=== PATIENT | male | born 1965 | race Caucasian/White ===

== ENCOUNTER 2022-02-18 00:21 | Inpatient (IN) | payer OTHER ==
[2022-02-18] MEDS ORDERED: HEPARIN SODIUM 1,000 UN/ML (10ML VL) IV ONE (00:43)
[2022-02-18] MEDS ORDERED: HEPARIN SODIUM 1,000 UN/ML (10ML VL) IV PRN (00:43)
[2022-02-18] MEDS ORDERED: HEPARIN SOD,PORK IN 0.45% NACL 25,000 UNIT in 0.45% NACL 1 250ML.BAG IV SCH (00:45)
--- NOTE | 2022-02-18 00:46 | ED ---
General Adult HPI - General Stated complaint: AFib, Shortness of Breathing Time Seen by Provider: 02/18/22 00:27 Source: patient Mode of arrival: EMS Limitations: no limitations - History of Present Illness Initial comments: Dictation was produced using Flim[employer] dictation software. please excuse any grammatical, word or spelling errors. Chief Complaint: 56-year-old male presents emergency department for dyspnea and weakness History of Present Illness: Patient is a 56-year-old male is has history of atrial fibrillation. As noncompliant with his A. fib medications. Patient states she's been admitted to the hospital couple years back for atrial fibrillation. He has not followed up like he was instructed to after that admission. Patient is not taking any medications. Over the last several days he's been having worsening shortness of breath it's more. With trying to exert himself. Denies any chest pain. He does report shortness of breath with ex ertion. No cough or constitutional symptoms. The ROS documented in this emergency department record has been reviewed and confirmed by me. Those systems with pertinent positive or negative responses have been documented in the HPI. All other systems are other negative and/or noncontributory. PHYSICAL EXAM: General Impression: Alert and oriented x3, not in acute distress HEENT: Normocephalic atraumatic, extra-ocular movements intact, pupils equal and reactive to light bilaterally, mucous membranes moist. Cardiovascular: Irregular Chest: Able to complete full sentences, no retractions, no tachypnea Abdomen: abdomen soft, non-tender, non-distended, no organomegaly Musculoskeletal: Pulses present and equal in all extremities, no peripheral edema Motor: no focal deficits noted Neurological: CN II-XII grossly intact, no focal motor or sensory deficits noted Skin: Intact with no visualized rashes Psych: Normal affect and mood ED course: 56-year-old male presents emergency Department with acute shortness of breath. Patient has history of atrial fibrillation. Vital signs upon arriva l shows tachycardia. EKG shows H or fibrillation with a rate of 154. Nursing notes and chart review was performed Laboratory evaluation obtained. CBC and coag panel is unremarkable. Metabolic panel is negative. Troponins elevated at 0.123 likely secondary to heart strain. Brain natruretic peptide is 6000 suggesting component of heart failure. X-ray shows pulmonary edema Patient observed in emergency department for several minutes after having started heparin and Cardizem with improvement. Patient will be admitted to cardiac stepdown unit under the care of [facility] hospitalist group. Case discussed with nurse practitioner, Christina Adhikari. EKG interpreted by me: Ventricular rate 154, a fibrillation with RVR, QRS 87, QTC 371. No [place] prolongation, no QTC prolongation, no ST or T-wave changes noted. Critical care time of 33 minutes - Related Data Previous Rx's Medication Instructions Recorded Apixaban [Eliquis] 5 mg PO BID #60 tab 04/08/17 Diltiazem Oral [Cardizem*] 30 mg PO QID #120 tab 04/08/17 Metoprolol Succinate (ER) [Toprol 100 mg PO DAILY #30 tab.er.24h 04/08/17 XL] Allergies Allergy/AdvReac Type Severity Reaction Status Date / Time No Known Allergies Allergy Verified 04/06/17 11:00 Review of Systems ROS Statement: Those systems with pertinent positive or pertinent negative responses have been documented in the HPI. ROS Other: All systems not noted in ROS Statement are negative. Past Medical History Past Medical History: Hypertension History of Any Multi-Drug Resistant Organisms: None Reported Past Surgical History: No Surgical Hx Reported Past Psychological History: No Psychological Hx Reported Past Alcohol Use History: Rare Past Drug Use History: Marijuana General Exam Limitations: no limitations Course Vital Signs 02/18/22 02/18/22 02/18/22 00:36 01:00 02:29 Temperature 98.1 F Pulse Rate 165 H 134 H Pulse Rate [ 164 H Apical] Respiratory 22 28 H Rate Blood Pressure 154/100 O2 Sat by Pulse 98 98 Oximetry Medical Decision Making - Lab Data Result diagrams: 02/18/22 00:51 02/18/22 00:51 Lab Results 02/18/22 02/18/22 02/18/22 Range/Units 00:51 00:51 00:51 WBC 10.8 H (3.8-10.6) k/uL RBC 5.46 (4.30-5.90) m/uL Hgb 15.5 (13.0-17.5) gm/dL Hct 47.4 (39.0-53.0) % MCV 86.8 (80.0-100.0) fL MCH 28.3 (25.0-35.0) pg MCHC 32.6 (31.0-37.0) g/dL RDW 15.5 (11.5-15.5) % Plt Count 312 (150-450) k/uL MPV 7.5 Neutrophils % 78 % Lymphocytes % 13 % Monocytes % 7 % Eosinophils % 1 % Basophils % 1 % Neutrophils # 8.4 H (1.3-7.7) k/uL Lymphocytes # 1.4 (1.0-4.8) k/uL Monocytes # 0.7 (0-1.0) k/uL Eosinophils # 0.1 (0-0.7) k/uL Basophils # 0.1 (0-0.2) k/uL Hypochromasia Slight PT 12.4 H (9.0-12.0) sec INR 1.2 H (<1.2) APTT 23.9 (22.0-30.0) sec Sodium 138 (137-145) mmol/L Potassium 4.1 (3.5-5.1) mmol/L Chloride 103 (98-107) mmol/L Carbon Dioxide 26 (22-30) mmol/L Anion Gap 9 mmol/L BUN 24 H (9-20) mg/dL Creatinine 1.31 H (0.66-1.25) mg/dL Est GFR (CKD-EPI)AfAm 70 (>60 ml/min/1.73 sqM) Est GFR (CKD-EPI)NonAf 60 (>60 ml/min/1.73 sqM) Glucose 131 H (74-99) mg/dL Plasma Lactic Acid Cosme (0.7-2.0) mmol/L Calcium 8.6 (8.4-10.2) mg/dL Magnesium 2.1 (1.6-2.3) mg/dL Total Bilirubin 1.2 (0.2-1.3) mg/dL AST 48 (17-59) U/L ALT 31 (4-49) U/L Alkaline Phosphatase 103 (38-126) U/L Troponin I (0.000-0.034) ng/mL NT-Pro-B Natriuret Pep pg/mL Total Protein 7.0 (6.3-8.2) g/dL Albumin 3.7 (3.5-5.0) g/dL 02/18/22 02/18/22 02/18/22 Range/Units 00:51 00:51 00:51 WBC (3.8-10.6) k/uL RBC (4.30-5.90) m/uL Hgb (13.0-17.5) gm/dL Hct (39.0-53.0) % MCV (80.0-100.0) fL MCH (25.0-35.0) pg MCHC (31.0-37.0) g/dL RDW (11.5-15.5) % Plt Count (150-450) k/uL MPV Neutrophils % % Lymphocytes % % Monocytes % % Eosinophils % % Basophils % % Neutrophils # (1.3-7.7) k/uL Lymphocytes # (1.0-4.8) k/uL Monocytes # (0-1.0) k/uL Eosinophils # (0-0.7) k/uL Basophils # (0-0.2) k/uL Hypochromasia PT (9.0-12.0) sec INR (<1.2) APTT (22.0-30.0) sec Sodium (137-145) mmol/L Potassium (3.5-5.1) mmol/L Chloride (98-107) mmol/L Carbon Dioxide (22-30) mmol/L Anion Gap mmol/L BUN (9-20) mg/dL Creatinine (0.66-1.25) mg/dL Est GFR (CKD-EPI)AfAm (>60 ml/min/1.73 sqM) Est GFR (CKD-EPI)NonAf (>60 ml/min/1.73 sqM) Glucose (74-99) mg/dL Plasma Lactic Acid Cosme 1.9 (0.7-2.0) mmol/L Calcium (8.4-10.2) mg/dL Magnesium (1.6-2.3) mg/dL Total Bilirubin (0.2-1.3) mg/dL AST (17-59) U/L ALT (4-49) U/L Alkaline Phosphatase (38-126) U/L Troponin I 0.123 H* (0.000-0.034) ng/mL NT-Pro-B Natriuret Pep 6310 pg/mL Total Protein (6.3-8.2) g/dL Albumin (3.5-5.0) g/dL Disposition Clinical Impression: Atrial fibrillation with RVR, Heart failure Disposition: ADMITTED IP TO THIS HOSP Condition: Serious Decision Time: 02:17
[2022-02-18] MEDS ORDERED: DILTIAZEM DRIP BOLUS FROM BAG 1 MG SOLN IV ONE (01:17)
[2022-02-18] MEDS ORDERED: SODIUM CHLORIDE 0.9% 1,000 ML IV STA (01:19)
[2022-02-18 01:20] LABS: Basophils # (A) 0.1 k/uL (0-0.2); Basophils % (A) 1 %; Eosinophils # (A) 0.1 k/uL (0-0.7); Eosinophils % (A) 1 %; HCT 47.4 % (39.0-53.0); HGB 15.5 gm/dL (13.0-17.5); Hypochromasia Slight; Lymphocytes # (A) 1.4 k/uL (1.0-4.8); Lymphocytes % (A) 13 %; MCH 28.3 pg (25.0-35.0); MCHC 32.6 g/dL (31.0-37.0); MCV 86.8 fL (80.0-100.0); Mean Platelet Volume 7.5; Monocytes # (A) 0.7 k/uL (0-1.0); Monocytes % (A) 7 %; Neutrophils # (A) 8.4 k/uL (1.3-7.7); Neutrophils % (A) 78 %; Platelet Count 312 k/uL (150-450); RBC 5.46 m/uL (4.30-5.90); RDW 15.5 % (11.5-15.5); WBC 10.8 k/uL (3.8-10.6)
[2022-02-18 01:30] LABS: Albumin 3.7 g/dL (3.5-5.0); Calcium 8.6 mg/dL (8.4-10.2); Magnesium 2.1 mg/dL (1.6-2.3); Potassium 4.1 mmol/L (3.5-5.1); Total Bilirubin 1.2 mg/dL (0.2-1.3)
[2022-02-18] MEDS ORDERED: DILTIAZEM 125 MG in SODIUM CHLORIDE 0.9% 100 ML IV SCH (01:30)
[2022-02-18 01:33] LABS: INR 1.2 (<1.2); Partial Thromboplastin Time 23.9 sec (22.0-30.0); Prothrombin Time 12.4 sec (9.0-12.0)
[2022-02-18] MEDS ORDERED: NALOXONE 0.4 MG/ML 1 ML VIAL IV PRN (02:17)
[2022-02-18] MEDS: SODIUM CHLORIDE 0.9% 1,000 ML IV SCH (02:20)
--- NOTE | 2022-02-18 03:04 | XR ---
EXAMINATION TYPE: XR chest 1V portable DATE OF EXAM: 02/18/2022 COMPARISON: 04/06/2017 HISTORY: Vertebra TECHNIQUE: Single view FINDINGS: There is pulmonary diffuse interstitial and mild airspace edema. Heart is top normal in siz e. There are chest leads. IMPRESSION: There is pulmonary edema that could be acute heart failure or acute interstitial pneumoni a. This appears new compared to old exam.
[2022-02-18] MEDS ORDERED: TEMAZEPAM 15 MG CAP PO PRN (11:05)
[2022-02-18] MEDS ORDERED: ALPRAZolam 0.25 MG TAB PO PRN (11:05)
[2022-02-18] MEDS ORDERED: FUROSEMIDE 10 MG/ML 4 ML VIAL IV SCH (11:15)
--- NOTE | 2022-02-18 12:04 | P.CRDCN ---
History of Present Illness Consult date: 02/18/22 Requesting physician: Mirza Durand Reason for Consult (text): afib rvr Chief complaint: shortness of breath, edema History of present illness: Subjective 56-year-old gentleman who does not follow regularly with cardiology. He was seen here in 2018 at which time he had persistent atrial fibrillation he was anticoagulated and rate was controlled with plans to pursue LYDIA guided cardioversion as an outpatient however patient never followed up. He has not been taking any medications and does not follow regularly with any physicians. He smokes marijuana on a regular basis but not every day. Denies alcohol intake. History of hypertension and obesity. Plan admit to the emergency department with complaints of progressively worsening shortness of breath and edema since around Thanksgiving time. He was found to be in atrial fibrillation with rapid ventricular response and initiated on Cardizem and heparin drip. Initial troponin was 0.123 with no redraw done. NT proBNP was 6310. Other labs showed a BUN of 24 and creatinine 1.31. Chest x-ray showed pulmonary edema that could be acute heart failure or acute interstitial pneumonia, appears new compared to old exam. Patient was seen and evaluated in the emergency department. His blood pressure has been elevated. Heart rate is better controlled in the 90s. Overall he is feeling a little bit better. Denies any complaints of chest discomfort, palpitations, dizziness or lightheadedness. He denies any orthopnea or PND. Does have complaint of lower extremity and abdominal edema. Past Medical History Past Medical History: Hypertension History of Any Multi-Drug Resistant Organisms: None Reported Past Surgical History: No Surgical Hx Reported Past Psychological History: No Psychological Hx Reported Past Alcohol Use History: Rare Past Drug Use History: Marijuana Medications and Allergies Home Medications Medication Instructions Recorded Confirmed Type Multivitamin [Multivitamins Adult 1 tab PO DAILY 02/18/22 02/18/22 History Gummies] Allergies Allergy/AdvReac Type Severity Reaction Status Date / Time No Known Allergies Allergy Verified 02/18/22 10:19 Physical Exam Vitals: Vital Signs Temp Pulse Pulse Resp BP Pulse Ox 02/18/22 06:03 108 H 18 160/97 97 02/18/22 02:29 134 H 28 H 98 02/18/22 01:00 164 H 02/18/22 00:36 98.1 F 165 H 22 154/100 98 Intake and Output 02/17/22 02/18/22 02/18/22 22:59 06:59 14:59 Other: Weight 140.614 kg PHYSICAL EXAMINATION: This is a 56-year-old male in no apparent distress at the time of my examination. HEENT: Head is atraumatic, normocephalic. Pupils are equal, round. Sclerae anicteric. Conjunctivae are clear. Mucous membranes of the mouth are moist. Neck is supple. There is no elevated jugular venous pressure. No carotid bruit is heard. CHEST EXAMINATION: Lungs reveal diminished entry bilaterally with bibasilar crackles. Respirations even and nonlabored. HEART EXAMINATION: Heart irregular rate and rhythm, positive S1 and S2. No S3. No S4. No clicks, rubs or murmurs. ABDOMEN: obese, mild edema noted. Bowel sounds are heard. No organomegaly noted. EXTREMITIES: 1+ peripheral pulses with evidence of peripheral edema and no calf tenderness noted. NEUROLOGIC EXAMINATION: Patient is awake, alert and oriented x3. Results 02/18/22 00:51 02/18/22 00:51 Cardiac Enzymes 02/18/22 02/18/22 Range/Units 00:51 00:51 AST 48 (17-59) U/L Troponin I 0.123 H* (0.000-0.034) ng/mL Coagulation 02/18/22 Range/Units 00:51 PT 12.4 H (9.0-12.0) sec APTT 23.9 (22.0-30.0) sec CBC 02/18/22 Range/Units 00:51 WBC 10.8 H (3.8-10.6) k/uL RBC 5.46 (4.30-5.90) m/uL Hgb 15.5 (13.0-17.5) gm/dL Hct 47.4 (39.0-53.0) % Plt Count 312 (150-450) k/uL Comprehensive Metabolic Panel 02/18/22 Range/Units 00:51 Sodium 138 (137-145) mmol/L Potassium 4.1 (3.5-5.1) mmol/L Chloride 103 (98-107) mmol/L Carbon Dioxide 26 (22-30) mmol/L BUN 24 H (9-20) mg/dL Creatinine 1.31 H (0.66-1.25) mg/dL Glucose 131 H (74-99) mg/dL Calcium 8.6 (8.4-10.2) mg/dL AST 48 (17-59) U/L ALT 31 (4-49) U/L Alkaline Phosphatase 103 (38-126) U/L Total Protein 7.0 (6.3-8.2) g/dL Albumin 3.7 (3.5-5.0) g/dL Current Medications Generic Name Dose Route Start Last Admin Trade Name Freq PRN Reason Stop Dose Admin Alprazolam 0.25 mg 02/18/22 11:05 Alprazolam 0.25 Mg Tab PO TID PRN Anxiety Apixaban 5 mg 02/18/22 21:00 Apixaban 5 Mg Tab PO BID [facility] Protocol Aspirin 81 mg 02/18/22 11:15 Aspirin 81 Mg PO DAILY [facility] Furosemide 40 mg 02/18/22 11:45 Furosemide 10 Mg/Ml 4 Ml Vial IV Q12HR [facility] Heparin Sodium (Porcine) 0 unit 02/18/22 00:43 Heparin Sodium 1,000 Un/Ml (10ml Vl) IV 02/18/22 22:00 PER PROTOCOL PRN Low PTT Protocol Heparin Sodium/Sodium Chloride 250 mls @ 10 mls/hr 02/18/22 00:45 02/18/22 01:32 25,000 unit/ Sodium Chloride IV 02/18/22 22:00 7.112 units/kg/hr .Q24H KRISH 10 mls/hr Administration Protocol 7.112 UNITS/KG/HR Diltiazem HCl 125 mg/ Sodium 125 mls @ 10 mls/hr 02/18/22 01:30 02/18/22 01:33 Chloride IV 10 mg/hr .[id number] KRISH 10 mls/hr Administration 10 MG/HR Sodium Chloride 1,000 mls @ 20 mls/hr 02/18/22 02:30 02/18/22 02:20 Saline 0.9% IV Not Given .Q24H [facility] Metoprolol Tartrate 25 mg 02/18/22 11:45 Metoprolol Tartrate 25 Mg Tab PO BID [facility] Naloxone HCl 0.2 mg 02/18/22 02:17 Naloxone 0.4 Mg/Ml 1 Ml Vial IV Q2M PRN Opioid Reversal Temazepam 15 mg 02/18/22 11:05 Temazepam 15 Mg Cap PO HS PRN Insomnia Intake and Output 02/17/22 02/18/22 02/18/22 22:59 06:59 14:59 Other: Weight 140.614 kg 02/18/22 00:51 02/18/22 00:51 EKG Interpretations (text) Atrial fibrillation with rapid ventricular response Assessment and Plan Assessment: 1 chronic persistent atrial fibrillation, not on anticoagulation, rapid ventricular response #2 evidence of heart failure, likely acute on chronic, most recent echocardiogram showed normal systolic function #3 hypertension #4 marijuana use #5 noncompliance Plan: From process project engineer for selectively or will obtain a 2-D echo with Doppler study to assess cardiac structure and function. Increase IV Lasix to 40 mg every 12 hours. Check another troponin level and TSH. The beta larissa and oral anticoagulation and stop IV heparin and Cardizem. Consult social media director. Emphasized to the patient importance of regular follow-up and compliance with medications. Continue to follow the patient and provide further recommendations accordingly. EXTRACTOR LOADER AND UNLOADER note has been reviewed, I agree with a documented findings and plan of care. Patient was seen and examined.
[2022-02-18] MEDS: ASPIRIN 81 MG PO SCH (16:54)
[2022-02-18] MEDS: METOPROLOL TARTRATE 25 MG TAB PO SCH ×2 (16:54→22:09)
[2022-02-18] MEDS: FUROSEMIDE 10 MG/ML 4 ML VIAL IV SCH ×2 (16:56→22:09)
--- NOTE | 2022-02-18 22:01 | HP ---
HISTORY AND PHYSICAL CHIEF COMPLAINT: Shortness of breath and atrial fibrillation. HISTORY OF PRESENT ILLNESS: This is a 56-year-old gentleman with a past medical history of hypertension, complaining of some shortness of breath and palpitation. The patient had a history of atrial fibrillation. The patient is apparently noncompliant with medications. The patient did not follow up after the last admission for atrial fibrillation. The chest x-ray showed evidence of CHF also. The patient was admitted for further evaluation and treatment. There is no history of any fever, rigors, or chills. PAST MEDICAL HISTORY: History of hypertension and history of atrial fibrillation. HOME MEDICATIONS: Multivitamin. ALLERGIES: None. FAMILY HISTORY: No history of heart disease or strokes in the family. SOCIAL HISTORY: History of THC. REVIEW OF SYSTEMS: A 14-point review is negative except as mentioned. PHYSICAL EXAMINATION: VITAL SIGNS: Pulse is 132, irregular. Blood pressure ntd, respirations 20. HEENT: Conjunctivae are normal. NECK: No jugular venous distention. CARDIOVASCULAR: S1 and S2 muffled. RESPIRATORY: A few scattered rhonchi. No crackles. ABDOMEN: Soft. Obese. LEGS: No edema. NERVOUS SYSTEM: No focal deficits. SKIN: No rash. JOINTS: No active deforming arthropathy. LABORATORY DATA: WBC 10.8. Creatinine is 1.31. Troponin 0.123. ASSESSMENT: 1. Atrial fibrillation with fast ventricular rate. 2. Congestive heart failure acute exacerbation. 3. Troponin 0.123. Rule out acute [id number]-elevation myocardial infarction. 4. Hypertension. 5. Obesity. RECOMMENDATIONS: This is a 56-year-old gentleman, who presented with multiple complex medical issues. We will monitor the patient closely. Continue with current medications and symptomatic treatment. Recommend Cardizem, Lasix, and heparin. Cardiology consultation. 2D echo. Full workup for atrial fibrillation. Importance of compliance is stressed with the patient. Fluid restriction. No added salt diet. Prognosis is guarded because of multiple complex medical issues. Further recommendations to follow. See orders for the details. MMODL / IJN: [id number] / MTDD
[2022-02-18] MEDS: APIXABAN 5 MG TAB PO SCH (22:09)
[2022-02-19 07:57] LABS: Basophils # (A) 0.1 k/uL (0-0.2); Basophils % (A) 0 %; Eosinophils # (A) 0.1 k/uL (0-0.7); Eosinophils % (A) 1 %; HCT 46.8 % (39.0-53.0); HGB 15.1 gm/dL (13.0-17.5); Hypochromasia Moderate; Lymphocytes # (A) 2.1 k/uL (1.0-4.8); Lymphocytes % (A) 18 %; MCH 28.5 pg (25.0-35.0); MCHC 32.3 g/dL (31.0-37.0); MCV 88.1 fL (80.0-100.0); Monocytes # (A) 0.7 k/uL (0-1.0); Monocytes % (A) 6 %; Neutrophils # (A) 8.3 k/uL (1.3-7.7); Neutrophils % (A) 73 %; Platelet Count 289 k/uL (150-450); RBC 5.31 m/uL (4.30-5.90); RDW 15.7 % (11.5-15.5); WBC 11.4 k/uL (3.8-10.6)
[2022-02-19 08:08] LABS: African American GFR (CKD) 69 (>60 ml/min/1.73 sqM); Anion Gap 11 mmol/L; Blood Urea Nitrogen 26 mg/dL (9-20); Calcium 8.4 mg/dL (8.4-10.2); Carbon Dioxide 27 mmol/L (22-30); Chloride 100 mmol/L (98-107); Glucose 82 mg/dL (74-99); Non-African American GFR(CKD) 60 (>60 ml/min/1.73 sqM); Potassium 3.8 mmol/L (3.5-5.1); Sodium 138 mmol/L (137-145)
[2022-02-19] MEDS: APIXABAN 5 MG TAB PO SCH ×2 (08:59→20:41)
[2022-02-19] MEDS: FUROSEMIDE 10 MG/ML 4 ML VIAL IV SCH ×2 (08:59→20:40)
[2022-02-19] MEDS: ASPIRIN 81 MG PO SCH (08:59)
[2022-02-19] MEDS ORDERED: METOPROLOL TARTRATE 50 MG TAB PO SCH (09:00)
[2022-02-19 10:58] LABS: Chol/HDL Ratio 4.07 Ratio; LDL Cholesterol,Calculated 85.1 mg/dL (0.0-131.0); VLDL Calculation 16.02 mg/dL (5.00-40.00)
[2022-02-19] MEDS: SODIUM CHLORIDE 0.9% 1,000 ML IV SCH (13:29)
--- NOTE | 2022-02-19 13:56 | P.PN ---
Subjective Progress Note Date: 02/19/22 History of Present Illness: The patient is a 56-year-old male with history of atrial ablation, noncompliance who presented with symptoms of progressive dyspnea, worsening edema, fatigue. He was noted to be in atrial fibrillation with rapid ventricle response and evidence of fluid overload. He is feeling better today. His breathing is better. He denies any chest discomfort or dizziness. He continues to be in atrial fibrillation, his ventricular response is controlled. He denies any nausea or vomiting. His echocardiogram is pending Medications: Aspirin, Lasix 40 mg IV every 12 hours, metoprolol 50 mg twice a day,Eliquis 5 mg twice a day Review of Systems: Respiratory: He has dyspnea on exertion with wheezing and cough GI: No nausea or vomiting . No history of peptic ulcer disease. No recent GI bleed. : No hematuria or dysuria. Nervous System: No stroke or seizure. Physical Examination: 56-year-old male, alert oriented obese ,Blood pressure 110/80, Heart rate 110 Head: Normocephalic. Eyes: Sclerae nonicteric. Neck: Good carotid upstroke, no bruit, no jugular venous distention. Lungs: Decreased breath sounds at the bases, improved Heart: Irregular rate and rhythm, S1-S2, no S3, no rub. Systolic ejection murmur. Abdomen: Soft nontender, positive bowel sounds no organomegaly. Extremities: 2+ edema, intact distal pulses. Labs: Potassium 3.8, BUN 26, creatinine 1.32, hemoglobin 15.1, troponin 0.123 and 0.118 Impression: 1. CHF, systolic function evaluation is not available yet 2. Atrial fibrillation with rapid ventricle response, improved 3. History of marijuana use 4. Troponin elevation secondary to type II event 5. Chronic kidney disease Plan: 1. Increased beta larissa 2. Stop aspirin 3. Review the results of the echo 4. Continue IV diuresis 5. Follow renal functions Objective - Vital Signs Vital signs: Vital Signs Temp 97.4 F L 02/19/22 12:00 Pulse 112 H 02/19/22 12:00 Resp 22 02/19/22 12:00 BP 110/80 02/19/22 12:00 Pulse Ox 98 02/19/22 12:00 FiO2 Intake & Output 02/18/22 02/19/22 02/19/22 18:59 06:59 18:59 Intake Total 500 Output Total 1000 1250 Balance -1000 -750 Weight 141.6 kg Intake: Oral 500 Output: Urine 1000 1250 Other: Voiding Method Toilet Toilet Urinal Urinal # Voids 1 - Labs CBC & Chem 7: 02/19/22 06:40 02/19/22 06:40 Labs: Abnormal Lab Results - Last 24 Hours (Table) 02/18/22 02/19/22 02/19/22 Range/Units 12:14 06:40 06:40 WBC 11.4 H (3.8-10.6) k/uL RDW 15.7 H (11.5-15.5) % Neutrophils # 8.3 H (1.3-7.7) k/uL BUN 26 H (9-20) mg/dL Creatinine 1.32 H (0.66-1.25) mg/dL Troponin I 0.118 H* (0.000-0.034) ng/mL HDL Cholesterol 32.90 L (40.00-60.00) mg/dL
[2022-02-19] MEDS: METOPROLOL TARTRATE 50 MG TAB PO SCH ×2 (16:59→20:41)
--- NOTE | 2022-02-19 23:47 | PN ---
PROGRESS NOTE DATE OF SERVICE: 02/19/2022 SUBJECTIVE: This 56-year-old gentleman was admitted with atrial fibrillation, fast ventricular rate, also was noncompliant. The patient is feeling better. No chest pain. No palpitations. No fever. OBJECTIVE: VITAL SIGNS: Pulse is 135, blood pressure 159/92, respirations 18. CHEST: A few scattered rhonchi and crackles. ABDOMEN: Soft, nontender. LEGS: No edema. NERVOUS SYSTEM: No focal deficits. LABS: Reviewed. ASSESSMENT: 1. Atrial fibrillation with fast ventricular rate. 2. Congestive heart failure acute exacerbation with acute on chronic diastolic dysfunction. 3. Troponin 0.123, possibly acute qgv-HS-bwkwfua-elevation myocardial function. 4. Hypertension. 5. Obesity. RECOMMENDATIONS AND DISCUSSION: Recommend to continue current management and symptomatic treatment. Continue with beta blockers and Cardizem. Otherwise, Eliquis has been initiated. Guarded prognosis because of multiple complex medical issues. Further recommendations to follow. See orders for further details. MMODL / IJN: [id number] /
[2022-02-20 08:03] LABS: Basophils # (A) 0.1 k/uL (0-0.2); Basophils % (A) 1 %; Eosinophils # (A) 0.1 k/uL (0-0.7); Eosinophils % (A) 1 %; HCT 46.6 % (39.0-53.0); HGB 15.4 gm/dL (13.0-17.5); Hypochromasia Slight; Lymphocytes # (A) 2.4 k/uL (1.0-4.8); Lymphocytes % (A) 23 %; MCH 28.9 pg (25.0-35.0); MCHC 33.1 g/dL (31.0-37.0); MCV 87.4 fL (80.0-100.0); Mean Platelet Volume 7.4; Monocytes # (A) 0.9 k/uL (0-1.0); Monocytes % (A) 9 %; Neutrophils # (A) 7.1 k/uL (1.3-7.7); Neutrophils % (A) 66 %; Platelet Count 346 k/uL (150-450); RBC 5.33 m/uL (4.30-5.90); RDW 15.5 % (11.5-15.5); WBC 10.9 k/uL (3.8-10.6)
[2022-02-20 08:21] LABS: Albumin 3.6 g/dL (3.5-5.0); Calcium 8.4 mg/dL (8.4-10.2); Potassium 3.8 mmol/L (3.5-5.1); Total Bilirubin 1.4 mg/dL (0.2-1.3)
[2022-02-20] MEDS: FUROSEMIDE 10 MG/ML 4 ML VIAL IV SCH (08:41)
[2022-02-20] MEDS: METOPROLOL TARTRATE 50 MG TAB PO SCH ×3 (08:42→21:16)
[2022-02-20] MEDS: APIXABAN 5 MG TAB PO SCH ×2 (08:42→21:16)
--- NOTE | 2022-02-20 14:45 | P.PN ---
Subjective Progress Note Date: 02/20/22 This is a 56-year-old gentleman who does not follow regularly with cardiology. He was seen here in 2018 at which time he had persistent atrial fibrillation he was anticoagulated and rate was controlled with plans to pursue LYDIA guided cardioversion as an outpatient however patient never followed up. He has not been taking any medications and does not follow regularly with any physicians. He smokes marijuana on a regular basis but not every day. Denies alcohol intake. History of hypertension and obesity. Plan admit to the emergency department with complaints of progressively worsening shortness of breath and edema since around Thanksgiving time. He was found to be in atrial fibrillation with rapid ventricular response and initiated on Cardizem and heparin drip. Initial troponin was 0.123 with no redraw done. NT proBNP was 6310. Other labs showed a BUN of 24 and creatinine 1.31. Chest x-ray showed pulmonary edema that could be acute heart failure or acute interstitial pneumonia, appears new compared to old exam. Patient was seen and evaluated in the emergency department. His blood pressure has been elevated. Heart rate is better controlled in the 90s. Overall he is feeling a little bit better. Denies any complaints of chest discomfort, palpitations, dizziness or lightheadedness. He denies any orthopnea or PND. Does have complaint of lower extremity and abdominal edema. 02/20/2022 Beta larissa was increased yesterday and heart rate is better controlled. He's been maintained on IV diuretics. Echocardiogram has been completed and results are pending. He is overall feeling quite a bit better since admission. Labs show an increase in his renal function with a BUN of 32 and creatinine of 1.54 which were 26 and 1.32 yesterday. Objective - Vital Signs Vital signs: Vital Signs Temp 97.8 F 02/20/22 04:00 Pulse 91 02/20/22 12:00 Resp 16 02/20/22 12:00 BP 148/106 02/20/22 12:00 Pulse Ox 99 02/20/22 12:00 FiO2 Intake & Output 02/19/22 02/20/22 02/20/22 18:59 06:59 18:59 Intake Total 858 118 Output Total 2250 2200 200 Balance -1392 -2200 -82 Intake: Oral 858 118 Output: Urine 2250 2200 200 Other: Voiding Method Toilet Toilet Toilet Urinal Urinal Urinal # Voids 2 - Exam HEENT: Head is atraumatic, normocephalic. Pupils are equal, round. Sclerae anicteric. Conjunctivae are clear. Mucous membranes of the mouth are moist. Neck is supple. There is no elevated jugular venous pressure. No carotid bruit is heard. CHEST EXAMINATION: Lungs reveal improved air exchange bilaterally. Respirations even and nonlabored. HEART EXAMINATION: Heart irregular rate and rhythm, positive S1 and S2. No S3. No S4. No clicks, rubs or murmurs. ABDOMEN: obese, soft and nontender. Bowel sounds are heard. No organomegaly noted. EXTREMITIES: Intact peripheral pulses with evidence of 1-2+ peripheral edema, improved and no calf tenderness noted. NEUROLOGIC EXAMINATION: Patient is awake, alert and oriented x3. - Labs CBC & Chem 7: 02/20/22 07:45 02/20/22 07:45 Labs: Abnormal Lab Results - Last 24 Hours (Table) 02/20/22 02/20/22 Range/Units 07:45 07:45 WBC 10.9 H (3.8-10.6) k/uL Sodium 135 L (137-145) mmol/L Chloride 95 L (98-107) mmol/L Carbon Dioxide 32 H (22-30) mmol/L BUN 32 H (9-20) mg/dL Creatinine 1.54 H (0.66-1.25) mg/dL Glucose 101 H (74-99) mg/dL Total Bilirubin 1.4 H (0.2-1.3) mg/dL AST 66 H (17-59) U/L Assessment and Plan Assessment: 1 chronic persistent atrial fibrillation, not on anticoagulation, rapid ventricular response #2 evidence of heart failure, likely acute on chronic, most recent echocardiogram showed normal systolic function #3 Troponin Elevation secondary to type II event #4 hypertension #5 marijuana use #6 noncompliance Plan: From cardiology's perspective we will review 2-D echo with Doppler study. Switch to oral Lasix. Continue to monitor renal function and electrolytes. Emphasized to the patient importance of regular follow-up and compliance with medications. Anticipate patient will be discharged home in the next 24 hours. BANKING SERVICES CLERK note has been reviewed, I agree with a documented findings and plan of care. Patient was seen and examined.
[2022-02-20] MEDS: FUROSEMIDE 40 MG TAB PO SCH (16:44)
--- NOTE | 2022-02-20 17:19 | CA ---
Transthoracic Echo Report Name: Derik Hernandez Age: 56 Gender: M : 1965 Exam Date: 02/20/2022 09:20 Exam Location: [facility] Ht (in): 67 Wt (lb): 340 Ordering Physician: Mirza Durand MD Attending/Referring Phys: Animation Producer Phoebe Leo RDCS Procedure CPT: Indications: chf Cardiac Hx: Technical Quality: Technically difficult study Contrast 1: Lumason Total Dose (mL): 4 Contrast 2: Total Dose (mL): MEASUREMENTS (Male / Female) Normal Values 2D ECHO LV Diastolic Diameter PLAX 4.2 cm 4.2 - 5.9 / 3.9 - 5.3 cm LV Systolic Diameter PLAX 4.1 cm IVS Diastolic Thickness 1.1 cm 0.6 - 1.0 / 0.6 - 0.9 cm LVPW Diastolic Thickness 1.5 cm 0.6 - 1.0 / 0.6 - 0.9 cm LV Relative Wall Thickness 0.6 RV Internal Dim ED PLAX 2.8 cm M-MODE Aortic Root Diameter MM 2.5 cm LA Systolic Diameter MM 4.5 cm LA Ao Ratio MM 1.8 MV E Point Septal Separation 1.2 cm DOPPLER TR Peak Velocity 200.4 cm/s TR Peak Gradient 16.1 mmHg Right Ventricular Systolic Press 21.1 mmHg FINDINGS Left Ventricle Left ventricular ejection fraction is estimated at 30%. Right Ventricle Normal right ventricular size and function. Right ventricular systolic pressure within normal limits. Right Atrium Normal right atrial size. Left Atrium Normal left atrial size. Mitral Valve Mitral valve not well visualized. Aortic Valve Aortic valve not well visualized. Tricuspid Valve Tricuspid valve not well visualized. Pulmonic Valve Pulmonic valve not well visualized. Pericardium Echo free space anterior to the right ventricle likely represents a fat pad. Aorta Aortic root and proximal ascending aorta not well visualized. CONCLUSIONS Diffuse global hypokinesis with severe LV dysfunction with an ejection fraction of 30% Contrast agent was used to enhance endocardial definition Previewed by: Dr. Brice Mancia MD (Electronically Signed) Final Date: 20 February 2022 17:18
[2022-02-20] MEDS: SODIUM CHLORIDE 0.9% 1,000 ML IV SCH ×2 (19:27→21:41)
[2022-02-21] MEDS: APIXABAN 5 MG TAB PO SCH ×2 (08:28→20:27)
[2022-02-21] MEDS: FUROSEMIDE 40 MG TAB PO SCH ×2 (08:28→15:20)
[2022-02-21] MEDS: METOPROLOL TARTRATE 50 MG TAB PO SCH ×3 (08:29→20:28)
[2022-02-21] MEDS ORDERED: FAMOTIDINE 20 MG/2 ML VIAL IV SCH (09:00)
[2022-02-21 10:57] LABS: Basophils # (A) 0.1 k/uL (0-0.2); Basophils % (A) 1 %; Eosinophils # (A) 0.1 k/uL (0-0.7); Eosinophils % (A) 1 %; HCT 49.3 % (39.0-53.0); HGB 15.7 gm/dL (13.0-17.5); Hypochromasia Moderate; Lymphocytes # (A) 2.2 k/uL (1.0-4.8); Lymphocytes % (A) 20 %; MCH 28.2 pg (25.0-35.0); MCHC 31.9 g/dL (31.0-37.0); MCV 88.4 fL (80.0-100.0); Mean Platelet Volume 7.7; Monocytes # (A) 0.6 k/uL (0-1.0); Monocytes % (A) 5 %; Neutrophils # (A) 8.2 k/uL (1.3-7.7); Neutrophils % (A) 72 %; Platelet Count 323 k/uL (150-450); RBC 5.58 m/uL (4.30-5.90); RDW 15.8 % (11.5-15.5); WBC 11.5 k/uL (3.8-10.6)
[2022-02-21 11:16] LABS: Albumin 3.8 g/dL (3.5-5.0); Calcium 8.4 mg/dL (8.4-10.2); Potassium 3.8 mmol/L (3.5-5.1); Total Bilirubin 1.1 mg/dL (0.2-1.3); Total Protein 7.3 g/dL (6.3-8.2)
--- NOTE | 2022-02-21 14:15 | P.PN ---
Subjective Progress Note Date: 02/21/22 This is a 56-year-old gentleman who does not follow regularly with cardiology. He was seen here in 2018 at which time he had persistent atrial fibrillation he was anticoagulated and rate was controlled with plans to pursue LYDIA guided cardioversion as an outpatient however patient never followed up. He has not been taking any medications and does not follow regularly with any physicians. He smokes marijuana on a regular basis but not every day. Denies alcohol intake. History of hypertension and obesity. Plan admit to the emergency department with complaints of progressively worsening shortness of breath and edema since around Thanksgiving time. He was found to be in atrial fibrillation with rapid ventricular response and initiated on Cardizem and heparin drip. Initial troponin was 0.123 with no redraw done. NT proBNP was 6310. Other labs showed a BUN of 24 and creatinine 1.31. Chest x-ray showed pulmonary edema that could be acute heart failure or acute interstitial pneumonia, appears new compared to old exam. Patient was seen and evaluated in the emergency department. His blood pressure has been elevated. Heart rate is better controlled in the 90s. Overall he is feeling a little bit better. Denies any complaints of chest discomfort, palpitations, dizziness or lightheadedness. He denies any orthopnea or PND. Does have complaint of lower extremity and abdominal edema. 02/20/2022 Beta larissa was increased yesterday and heart rate is better controlled. He's been maintained on IV diuretics. Echocardiogram has been completed and results are pending. He is overall feeling quite a bit better since admission. Labs show an increase in his renal function with a BUN of 32 and creatinine of 1.54 which were 26 and 1.32 yesterday. 02/21/2022 The patient was seen and examined standing at the bedside. He is overall feeling better. He's been switched to oral Lasix and is tolerating this well with an improvement in his renal function. Echocardiogram with Doppler study showed severe global hypokinesis with an ejection fraction of 30% which has not been seen in the past. He is currently on metoprolol tartrate 50 mg by mouth 3 times a day. Objective - Vital Signs Vital signs: Vital Signs Temp 97.5 F L 02/21/22 11:52 Pulse 91 02/21/22 11:52 Resp 20 02/21/22 11:52 BP 140/99 02/21/22 11:52 Pulse Ox 99 02/21/22 11:52 FiO2 Intake & Output 02/20/22 02/21/22 02/21/22 18:59 06:59 18:59 Intake Total 236 420 Output Total 1200 Balance -964 420 Intake: Oral 236 420 Output: Urine 1200 Other: Voiding Method Toilet Toilet Urinal Urinal # Voids 1 2 - Exam HEENT: Head is atraumatic, normocephalic. Pupils are equal, round. Sclerae anicteric. Conjunctivae are clear. Mucous membranes of the mouth are moist. Neck is supple. There is no elevated jugular venous pressure. No carotid bruit is heard. CHEST EXAMINATION: Lungs reveal improved air exchange bilaterally. Respirations even and nonlabored. HEART EXAMINATION: Heart irregular rate and rhythm, positive S1 and S2. No S3. No S4. No clicks, rubs or murmurs. ABDOMEN: obese, soft and nontender. Bowel sounds are heard. No organomegaly noted. EXTREMITIES: Intact peripheral pulses with evidence of 1-2+ peripheral edema, improved and no calf tenderness noted. NEUROLOGIC EXAMINATION: Patient is awake, alert and oriented x3. - Labs CBC & Chem 7: 02/21/22 10:35 02/21/22 10:35 Labs: Abnormal Lab Results - Last 24 Hours (Table) 02/21/22 02/21/22 Range/Units 10:35 10:35 WBC 11.5 H (3.8-10.6) k/uL RDW 15.8 H (11.5-15.5) % Neutrophils # 8.2 H (1.3-7.7) k/uL Sodium 135 L (137-145) mmol/L Chloride 97 L (98-107) mmol/L BUN 37 H (9-20) mg/dL Creatinine 1.32 H (0.66-1.25) mg/dL Glucose 129 H (74-99) mg/dL AST 75 H (17-59) U/L Assessment and Plan Assessment: 1 chronic persistent atrial fibrillation, not on anticoagulation, rapid ventricu lar response #2 evidence of heart failure, likely acute on chronic, systolic #3 Troponin Elevation secondary to type II event #4 cardiomyopathy, likely nonischemic, would be related to the persistent atrial fibrillation #5 hypertension #6 marijuana use #7 noncompliance Plan: From cardiology's perspective we will optimize medications by adding an JS inhibitor as well as Farxiga. Monitor the renal function and electrolytes. Depending on the findings and patient's clinical status further recommendations will be made. CAR DISPATCHER note has been reviewed, I agree with a documented findings and plan of care. Patient was seen and examined.
[2022-02-21] MEDS: lisinopriL 5 MG TAB PO SCH (15:21)
--- NOTE | 2022-02-21 17:42 | PN ---
PROGRESS NOTE DATE OF SERVICE: 02/20/2022 SUBJECTIVE: This is a 56-year-old gentleman who was admitted with atrial fibrillation, fast ventricular rate, also had a CHF. No chest pain, no palpitations, no fever. OBJECTIVE: VITAL SIGNS: Pulse 91, blood pressure 148/106, and respirations 16. HEENT: Conjunctivae normal. NECK: No jugular venous distention. RESPIRATIONS: Few scattered rhonchi. ABDOMEN: Soft. NERVOUS SYSTEM: No focal deficits. LABS: Reviewed. Creatinine 1.5. ASSESSMENT: 1. Atrial fibrillation with fast ventricular rate. 2. Congestive heart failure with acute exacerbation with acute on chronic diastolic dysfunction. 3. Troponin 0.1 with possible acute pos-YB-[id number]-elevation myocardial infarction. 4. Hypertension. 5. Obesity. RECOMMENDATIONS: Recommended to continue current management and symptomatic treatment, cut down the Lasix. Repeat labs. Follow closely with Cardiology. Guarded prognosis. Further recommendations to follow. MMHARISHL / SIDNEYN: [id number] /
--- NOTE | 2022-02-21 18:57 | P.PN ---
Subjective This is a pleasant 56 years old male with multiple medical problems presents with A. fib and RVR has been evaluated by parts casting machine operator and currently his heart rate is controlled with metoprolol 50 mg 3 times a day. However patient is asymptomatic today no chest pain or dyspnea, no other complaint, he had some dyspnea on admission but resolved now, he does not have PCP He is currently started on Eliquis blood thinner, today I explained for the pa tient the benefits and risks of this blood thinner and patient is agreeable to take in His gait is normal and he is working with no difficulty However echocardiogram showing severe cardiomyopathy with ejection fraction 30% and severe global hypokinesia, parts casting machine operator evaluated the patient and started on farxiga And lisinopril 5 mg. Check labs in the morning Objective - Vital Signs Vital signs: Vital Signs Temp 97.5 F L 02/21/22 11:52 Pulse 91 02/21/22 11:52 Resp 20 02/21/22 11:52 BP 140/99 02/21/22 11:52 Pulse Ox 99 02/21/22 11:52 FiO2 Intake & Output 02/20/22 02/21/22 02/21/22 18:59 06:59 18:59 Intake Total 236 420 Output Total 1200 Balance -964 420 Intake: Oral 236 420 Output: Urine 1200 Other: Voiding Method Toilet Toilet Urinal Urinal # Voids 1 2 - Exam -GENERAL: The patient is alert and oriented x3, not in any acute distress. Well morbidly obese HEENT: Pupils are round and equally reacting to light. EOMI. No scleral icterus. No conjunctival pallor. Normocephalic, atraumatic. No pharyngeal erythema. No thyromegaly. CARDIOVASCULAR: S1 and S2 present. No murmurs, rubs, or gallops. PULMONARY: Chest is clear to auscultation, no wheezing or crackles. ABDOMEN: Soft, nontender, nondistended, normoactive bowel sounds. No palpable organomegaly. MUSCULOSKELETAL: No joint swelling or deformity. EXTREMITIES: No cyanosis, clubbing, or pedal edema. NEUROLOGICAL: Gross neurological examination did not reveal any focal deficits. SKIN: No rashes. no petechiae. - Labs CBC & Chem 7: 02/21/22 10:35 02/21/22 10:35 Labs: Abnormal Lab Results - Last 24 Hours (Table) 02/21/22 02/21/22 Range/Units 10:35 10:35 WBC 11.5 H (3.8-10.6) k/uL RDW 15.8 H (11.5-15.5) % Neutrophils # 8.2 H (1.3-7.7) k/uL Sodium 135 L (137-145) mmol/L Chloride 97 L (98-107) mmol/L BUN 37 H (9-20) mg/dL Creatinine 1.32 H (0.66-1.25) mg/dL Glucose 129 H (74-99) mg/dL AST 75 H (17-59) U/L Assessment and Plan Assessment: A. fib and RVR, present on admission Cardiomyopathy with ejection fraction of 30% Elevated troponin SECONDARY to type II demand/supply mismatch Mild chronic leukocytosis, seen since 2018 at least Morbid obesity with BMI of 48.9 Plan: Continue with Eliquis, find out about the co-pay of Eliquis Monitor creatinine Continue with lisinopril and metoprolol Cardiology team under consult Labs and medication were reviewed.. Continue same treatment. Continue with symptomatic treatment. Resume home medication. Monitor lytes and vitals. DVT and GI prophylaxis. Further recommendations as per clinical course of the patient DVT prophylaxis: Eliquis GI Prophylaxis: Pepcid Prognosis is guarded
[2022-02-21] MEDS: DAPAGLIFLOZIN PROPANEDIOL 10 MG TABLET PO SCH (20:27)
[2022-02-21] MEDS: FAMOTIDINE 20 MG TAB PO SCH (20:28)
[2022-02-22] MEDS: SODIUM CHLORIDE 0.9% 1,000 ML IV SCH (04:00)
[2022-02-22] MEDS: METOPROLOL TARTRATE 50 MG TAB PO SCH ×2 (08:00→16:08)
[2022-02-22] MEDS: FAMOTIDINE 20 MG TAB PO SCH (08:00)
[2022-02-22] MEDS: FUROSEMIDE 40 MG TAB PO SCH ×2 (08:00→16:08)
[2022-02-22] MEDS: DAPAGLIFLOZIN PROPANEDIOL 10 MG TABLET PO SCH (08:00)
[2022-02-22] MEDS: APIXABAN 5 MG TAB PO SCH (08:01)
[2022-02-22] MEDS: lisinopriL 5 MG TAB PO SCH (08:01)
[2022-02-22] MEDS ORDERED: NYSTATIN 100,000 UNIT/GM POWD 15 GM TOPICAL SCH (09:00)
[2022-02-22 09:37] LABS: Calcium 8.2 mg/dL (8.4-10.2); Potassium 3.6 mmol/L (3.5-5.1)
[2022-02-22 10:49] VITALS: PULSE 90; RESP 14
[2022-02-22 11:25] VITALS: BP 130/90; TEMP 98
--- NOTE | 2022-02-22 14:08 | P.PN ---
Subjective Progress Note Date: 02/22/22 This is a 56-year-old gentleman who does not follow regularly with cardiology. He was seen here in 2018 at which time he had persistent atrial fibrillation he was anticoagulated and rate was controlled with plans to pursue LYDIA guided cardioversion as an outpatient however patient never followed up. He has not been taking any medications and does not follow regularly with any physicians. He smokes marijuana on a regular basis but not every day. Denies alcohol intake. History of hypertension and obesity. Plan admit to the emergency department with complaints of progressively worsening shortness of breath and edema since around Thanksgiving time. He was found to be in atrial fibrillation with rapid ventricular response and initiated on Cardizem and heparin drip. Initial troponin was 0.123 with no redraw done. NT proBNP was 6310. Other labs showed a BUN of 24 and creatinine 1.31. Chest x-ray showed pulmonary edema that could be acute heart failure or acute interstitial pneumonia, appears new compared to old exam. Patient was seen and evaluated in the emergency department. His blood pressure has been elevated. Heart rate is better controlled in the 90s. Overall he is feeling a little bit better. Denies any complaints of chest discomfort, palpitations, dizziness or lightheadedness. He denies any orthopnea or PND. Does have complaint of lower extremity and abdominal edema. 02/20/2022 Beta larissa was increased yesterday and heart rate is better controlled. He's been maintained on IV diuretics. Echocardiogram has been completed and results are pending. He is overall feeling quite a bit better since admission. Labs show an increase in his renal function with a BUN of 32 and creatinine of 1.54 which were 26 and 1.32 yesterday. 02/21/2022 The patient was seen and examined standing at the bedside. He is overall feeling better. He's been switched to oral Lasix and is tolerating this well with an improvement in his renal function. Echocardiogram with Doppler study showed severe global hypokinesis with an ejection fraction of 30% which has not been seen in the past. He is currently on metoprolol tartrate 50 mg by mouth 3 times a day. 02/22/2022 Patient was seen and examined resting comfortably sitting up in a chair. He feels quite a bit better today. Breathing has improved and edema is better. He is tolerating current medications. Renal function is relatively stable. Objective - Vital Signs Vital signs: Vital Signs Temp 98.0 F 02/22/22 11:23 Pulse 90 02/22/22 13:47 Resp 14 02/22/22 13:47 BP 130/90 02/22/22 11:23 Pulse Ox 98 02/22/22 11:23 FiO2 Intake & Output 02/21/22 02/22/22 02/22/22 18:59 06:59 18:59 Intake Total 720 118 400 Balance 720 118 400 Intake: Oral 720 118 400 Other: Voiding Method Toilet Toilet Urinal Urinal # Voids 1 2 - Exam HEENT: Head is atraumatic, normocephalic. Pupils are equal, round. Sclerae anicteric. Conjunctivae are clear. Mucous membranes of the mouth are moist. Neck is supple. There is no elevated jugular venous pressure. No carotid bruit is heard. CHEST EXAMINATION: Lungs reveal improved air exchange bilaterally. Respirations even and nonlabored. HEART EXAMINATION: Heart irregular rate and rhythm, positive S1 and S2. No S3. No S4. No clicks, rubs or murmurs. ABDOMEN: obese, soft and nontender. Bowel sounds are heard. No organomegaly noted. EXTREMITIES: Intact peripheral pulses with evidence of 1+ peripheral edema, improved and no calf tenderness noted. NEUROLOGIC EXAMINATION: Patient is awake, alert and oriented x3. - Labs CBC & Chem 7: 02/21/22 10:35 02/22/22 08:46 Labs: Abnormal Lab Results - Last 24 Hours (Table) 02/22/22 Range/Units 08:46 Sodium 136 L (137-145) mmol/L Carbon Dioxide 32 H (22-30) mmol/L BUN 32 H (9-20) mg/dL Creatinine 1.38 H (0.66-1.25) mg/dL Glucose 109 H (74-99) mg/dL Calcium 8.2 L (8.4-10.2) mg/dL Assessment and Plan Assessment: 1 chronic persistent atrial fibrillation, not on anticoagulation, rapid ventricular response #2 evidence of heart failure, likely acute on chronic, systolic #3 Troponin Elevation secondary to type II event #4 cardiomyopathy, likely nonischemic, would be related to the persistent atrial fibrillation #5 hypertension #6 marijuana use #7 noncompliance Plan: From cardiology's perspective medications were reviewed and we will continue the same. From our standpoint patient may be discharged home and follow-up as an outpatient. May consider addition of Aldactone at that time. SOLUTION SPEC note has been reviewed, I agree with a documented findings and plan of care. Patient was seen and examined.
--- NOTE | 2022-02-22 21:45 | P.DS ---
Providers Date of admission: 02/18/22 02:18 Attending physician: Mirza Durand Consults: 02/18/22 02:17 Consult Physician Routine Consulting Provider: Raj Palomo Consult Reason/Comments: afib rvr Do you want consulting provider notified?: Yes Primary care physician: Stated None Hospital Course: diagnoses: A. fib and RVR, present on admission Cardiomyopathy with ejection fraction of 30% fungal infection of the skin folds in his lower abdomen and perineal area Elevated troponin SECONDARY to type II demand/supply mismatch Mild chronic leukocytosis, seen since 2018 at least Morbid obesity with BMI of 48.9 Hospital course: This is a pleasant 56 years old male with multiple medical problems presents with A. fib and RVR has been evaluated by apparel embroidery digitizer and currently his heart rate is controlled with metoprolol 50 mg 3 times a day. However patient is asymptomatic today no chest pain or dyspnea, no other complaint, he had some dyspnea on admission but resolved now, his been evaluated by apparel embroidery digitizer, he was not on anticoagulation at home and was started on Eliquis her apparel embroidery digitizer, risks and benefits are explained for him extensively and he verbalized understanding and acceptance. His co-pay for Eliquis is $40, staff Dr. parisi and she is agreeable. a coupon for free Eliquis times one month as provided for the patient by staff open discharge patient is eager to go home today ( I need to pay my bills) patient also feels medically he is ready to go home Get up and go test is normal Patient was cleared for discharge by apparel embroidery digitizer also patient have some evidence of skin fungal infection in the perineal area and skin folds in his lower abdomen, nystatin started for him, this infection might explain his mild leukocytosis. No other signs of infection because patient has chronic mild leukocytosis Problems and management plan were discussed with the patient and he verbalized understanding and acceptance Patient was found stable and can be discharged home in guarded prognosis however he needs follow-up as an outpatient. Patient was instructed to follow up with PCP within one week and patient agrees patient states he has no PCP, [facility] or find nearby PCP and he agrees. Contact information for Dr. Polly Peña provided for him upon his request Was instructed to follow up with his apparel embroidery digitizer Dr. Hathaway in one week and he agrees to call and make appointment as today is weakened Physical exam -Gen: patient is a AAOx3, no distress. Morbidly obese CVS: S1-S2, RRR, no murmur Lungs: B/L CTA, no wheezing Abdomen: soft, no distention, no tenderness, positive bowel sounds Extremity: no leg edema or induration -skin: No petechiae, mild rash in the lower abdominal folds and perineal area Time spent more than 35 minutes Patient Condition at Discharge: Serious Plan - Discharge Summary New Discharge Prescriptions: New Metoprolol Tartrate [Lopressor] 50 mg PO TID #90 tab lisinopriL [Zestril] 5 mg PO DAILY #30 tab Apixaban [Eliquis] 5 mg PO BID #60 tab Furosemide [Lasix] 40 mg PO BID@0900,1600 #60 tab Dapagliflozin Propanediol [Farxiga] 10 mg PO DAILY #30 tab Nystatin 100,000 Unit/gm Powd [Mycostatin Powder] 1 applic TOPICAL TID #1 each Continue Multivitamin [Multivitamins Adult Gummies] 1 tab PO DAILY Discharge Medication List Multivitamin [Multivitamins Adult Gummies] 1 tab PO DAILY 02/18/22 [History] Apixaban [Eliquis] 5 mg PO BID #60 tab 02/21/22 [Rx] Furosemide [Lasix] 40 mg PO BID@0900,1600 #60 tab 02/21/22 [Rx] Metoprolol Tartrate [Lopressor] 50 mg PO TID #90 tab 02/21/22 [Rx] Dapagliflozin Propanediol [Farxiga] 10 mg PO DAILY #30 tab 02/22/22 [Rx] Nystatin 100,000 Unit/gm Powd [Mycostatin Powder] 1 applic TOPICAL TID #1 each 02/22/22 [Rx] lisinopriL [Zestril] 5 mg PO DAILY #30 tab 02/22/22 [Rx] Follow up Appointment(s)/Referral(s): Sharan Peña MD [STAFF PHYSICIAN] - 1 Week (primary care doctor) Blane Tabares MD [STAFF PHYSICIAN] - 1 Week (apparel embroidery digitizer ) Tammy Carrizales MD [REFERRING] - 1 Week (primary care doctor) Patient Instructions/Handouts: A-fib (Atrial Fibrillation) (DC), Safe Use of Anticoagulants (DC) Activity/Diet/Wound Care/Special Instructions: heart healthy diet, low carbohydrate diet activity is restricted till you see your doctor We recommend you call your health insurance provider to find nearby primary care doctor, please call to make an appointment within 1 week Your copy for Eliquis is $40 every month, he will be provided with a coupon of only one month of the free supply of Eliquis Discharge Disposition: HOME SELF-CARE
== END 2022-02-22 16:17 | disposition home or self-care (01) | DRG 280 ==
LOC: EC 00:21 → 3SCARD 02:18
PROVIDERS: ADMIT Hospitalist; ATTEND Hospitalist
DX: I48.19 Other persistent atrial fibrillation (principal); I50.33 Acute on chronic diastolic (congestive) heart failure; I21.A1 Myocardial infarction type 2; I13.0 Hypertensive heart and chronic kidney disease with heart failure and stage 1 through stage 4 chronic kidney disease, or unspecified chronic kidney disease; Z68.42 Body mass index [BMI] 45.0-49.9, adult; I42.8 Other cardiomyopathies; E66.01 Morbid (severe) obesity due to excess calories; B36.8 Other specified superficial mycoses; D72.829 Elevated white blood cell count, unspecified; N18.9 Chronic kidney disease, unspecified; Z79.01 Long term (current) use of anticoagulants; Z91.14 Patient's other noncompliance with medication regimen; Z91.199 Patient's noncompliance with other medical treatment and regimen due to unspecified reason
CPT/HCPCS: 36415; 71045; 80048; 80053; 80061; 83605; 83735; 83880; 84443; 84484; 85025; 85610; 85730; 93005; 93306; 94760; 96365; 96366; 96375; 99291

== ENCOUNTER → 2022-03-19 | Outpatient (CLI) | payer OTHER ==
[2022-03-19 16:06] LABS: African American GFR (CKD) 56.3 (60.0-200.0); Albumin 3.6 g/dL (3.8-4.9); Albumin/Globulin Ratio 1.08 (1.60-3.17); Anion Gap 9.6 mmol/L (10.00-18.00); BUN/Creat Ratio 14.17 Ratio (12.00-20.00); Blood Urea Nitrogen 22.1 mg/dL (9.0-27.0); Calcium 9.2 mg/dL (8.7-10.3); Carbon Dioxide 31.3 mmol/L (20.0-27.5); Globulin 3.3 g/dL (1.6-3.3); Non-African American GFR(CKD) 48.6 (60.0-200.0); Potassium 5.2 mmol/L (3.5-5.5); Total Bilirubin 0.7 mg/dL (0.30-1.20); Total Protein 6.9 g/dL (6.2-8.2)
== END | disposition home or self-care (01) ==
LOC: LABWHC1 11:01
PROVIDERS: ATTEND Internal Medicine Interventional Cardiology
DX: I42.8 Other cardiomyopathies (principal)
CPT/HCPCS: 36415; 80053; 83880

== ENCOUNTER → 2022-06-17 | Outpatient (CLI) | payer OTHER ==
[2022-06-17 23:17] LABS: African American GFR (CKD) 73.6 (60.0-200.0); Albumin/Globulin Ratio 1.22 (1.60-3.17); Anion Gap 13.6 mmol/L (10.00-18.00); BUN/Creat Ratio 16.16 Ratio (12.00-20.00); Blood Urea Nitrogen 20.2 mg/dL (9.0-27.0); Calcium 9.5 mg/dL (8.7-10.3); Carbon Dioxide 25.1 mmol/L (20.0-27.5); Globulin 3.3 g/dL (1.6-3.3); Non-African American GFR(CKD) 63.5 (60.0-200.0); Potassium 4.5 mmol/L (3.5-5.5); Total Bilirubin 0.3 mg/dL (0.30-1.20); Total Protein 7.3 g/dL (6.2-8.2)
== END | disposition home or self-care (01) ==
LOC: LABWHC1 15:29
PROVIDERS: ATTEND Internal Medicine Interventional Cardiology
DX: I42.8 Other cardiomyopathies (principal)
CPT/HCPCS: 36415; 80053; 83880